=== PATIENT | male | born 2005 | race Caucasian/White ===

== ENCOUNTER 2025-03-24 16:53 | Inpatient (IN) | payer BC ==
[~2025-03-24] VITALS: Ht 165.1 cm; Wt 59.9 kg
[2025-03-24 17:48] LABS: PLATELET COUNT (AUTO) 263 K/uL (150-450); RED BLOOD CELL COUNT(AUTO) 5.64 MIL/uL (4.5-6.0); RED CELL DISTRIBUTION WIDTH 13.7 % (11.5-15.0); WHITE BLOOD COUNT (AUTO) 8.2 K/uL (4.3-11.0)
[2025-03-24 18:01] LABS: APPEARANCE,URINE CLEAR (CLEAR); BLOOD, URINE Small Ery/uL (NEGATIVE); LEUKOCYTE ESTERASE ,URINE Negative (NEGATIVE); UGLUCOSE Negative (NEGATIVE)
[2025-03-24] MEDS ORDERED: METOCLOPRAMIDE HCL 10 MG/2 ML VIAL ONE (18:02)
[2025-03-24] MEDS ORDERED: FAMOTIDINE/PF INJ 20 MG/2 ML VIAL IV ONE (18:02)
[2025-03-24] MEDS ORDERED: MAG HYDROX/AL HYDROX/SIMETH 30 ML UDC ONE (18:02)
[2025-03-24] MEDS ORDERED: LIDOCAINE VISCOUS 2% UD 15 ML UDC ONE (18:03)
[2025-03-24 18:04] LABS: CALCIUM, SERUM 9.7 mg/dL (8.5-10.1); CREATININE 0.8 mg/dL (0.6-1.3); SODIUM SERUM 131.0 mmol/L (136-145); UREA NITROGEN, BLOOD 17.0 mg/dL (7-18)
[2025-03-24 18:05] LABS: NITRITE, URINE NEGATIVE (NEGATIVE)
[2025-03-24 18:07] LABS: ADD URINE CULTURE NO; SQUAMOUS EPITHELIAL CELL,UR None Seen /HPF (None Seen)
[2025-03-24] MEDS: METOCLOPRAMIDE HCL 10 MG/2 ML VIAL IV ONE (18:08)
[2025-03-24] MEDS: IV NS 0.9% 1,000 ML BAG IV ONE (18:08)
[2025-03-24] MEDS: FAMOTIDINE/PF INJ 20 MG/2 ML VIAL IV ONE (18:08)
[2025-03-24 18:09] LABS: ASPARTATE AMINOTRANSFERASE 26.0 U/L (15-37); TOTAL PROTEIN, SERUM 8.8 g/dL (6.4-8.2)
[2025-03-24] MEDS: MAG HYDROX/AL HYDROX/SIMETH 30 ML UDC PO ONE (18:09)
[2025-03-24] MEDS: LIDOCAINE VISCOUS 2% UD 15 ML UDC MM ONE (18:09)
[2025-03-24] MEDS ORDERED: POTASSIUM CHLORIDE 20 MEQ TAB.PRT.SR PO ONE (19:19)
[2025-03-24] MEDS: POTASSIUM CHLORIDE 20 MEQ TAB.PRT.SR PO ONE (19:23)
[2025-03-24 21:00] VITALS: O2SAT 96
[2025-03-24 22:05] VITALS: BP 116/73; TEMP 97.7; O2SAT 96
[2025-03-24] MEDS ORDERED: ACETAMINOPHEN 325 MG TABLET PO PRN (23:00)
[2025-03-24] MEDS ORDERED: MAGNESIUM HYDROXIDE 30 ML UDC PO PRN (23:00)
[2025-03-24] MEDS ORDERED: Z GUARD REMEDY 4 OZ OINT TP PRN (23:00)
[2025-03-24] MEDS ORDERED: MAG HYDROX/AL HYDROX/SIMETH 30 ML UDC PO PRN (23:00)
[2025-03-24] MEDS ORDERED: ZOLPIDEM TARTRATE 5 MG TABLET PO PRN (23:00)
[2025-03-24] MEDS: IV NS 0.9% 1,000 ML IV PRN (23:11)
[2025-03-24] MEDS ORDERED: KETOROLAC TROMETHAMINE 15 MG/ML VIAL IV PRN (23:30)
[2025-03-25 06:42] LABS: PLATELET COUNT (AUTO) 201 K/uL (150-450); RED BLOOD CELL COUNT(AUTO) 4.93 MIL/uL (4.5-6.0); RED CELL DISTRIBUTION WIDTH 13.9 % (11.5-15.0); WHITE BLOOD COUNT (AUTO) 5.7 K/uL (4.3-11.0)
[2025-03-25 06:47] LABS: ASPARTATE AMINOTRANSFERASE 18.0 U/L (15-37); CALCIUM, SERUM 8.6 mg/dL (8.5-10.1); CREATININE 1.0 mg/dL (0.6-1.3); PHOSPHORUS 2.9 mg/dL (2.5-4.9); SODIUM SERUM 139.0 mmol/L (136-145); TOTAL PROTEIN, SERUM 6.4 g/dL (6.4-8.2); UREA NITROGEN, BLOOD 14.0 mg/dL (7-18)
[2025-03-25 07:30] VITALS: BP 119/62; TEMP 98.4; O2SAT 98
[2025-03-25] MEDS: PANTOPRAZOLE 40 MG VIAL IV SCH (08:06)
[2025-03-25 10:25] LABS: LYMPHOCYTES % (MANUAL) 25 % (16-48); NEUTROPHILS % (MANUAL) 57 (42-76)
[2025-03-25 10:26] LABS: MONOCYTES % (MANUAL) 18 % (0-11.0); PLATELET ESTIMATE ADEQUATE
[2025-03-25] MEDS: ONDANSETRON HCL/PF 4 MG/2 ML VIAL IVP PRN (12:12)
[2025-03-25 20:00] VITALS: BP 142/100; TEMP 98.1; O2SAT 98
[2025-03-26 06:54] LABS: PLATELET COUNT (AUTO) 204 K/uL (150-450); RED BLOOD CELL COUNT(AUTO) 4.97 MIL/uL (4.5-6.0); RED CELL DISTRIBUTION WIDTH 13.9 % (11.5-15.0); WHITE BLOOD COUNT (AUTO) 5.5 K/uL (4.3-11.0)
[2025-03-26 07:10] LABS: CALCIUM, SERUM 8.7 mg/dL (8.5-10.1); CREATININE 0.8 mg/dL (0.6-1.3); PHOSPHORUS 3.6 mg/dL (2.5-4.9); SODIUM SERUM 136.0 mmol/L (136-145); UREA NITROGEN, BLOOD 11.0 mg/dL (7-18)
[2025-03-26 08:00] VITALS: BP 115/76; TEMP 98.4; O2SAT 100
[2025-03-26 11:13] LABS: EOSINOPHILS % (MANUAL) 3 % (0-4); LYMPHOCYTES % (MANUAL) 31 % (16-48); MONOCYTES % (MANUAL) 17 % (0-11.0); NEUTROPHILS % (MANUAL) 49 (42-76); PLATELET ESTIMATE ADEQUATE
[2025-03-26] MEDS ORDERED: PANT20TA2 PO (12:04)
[2025-03-27] MEDS ORDERED: ONDA4TAB5 PO (12:35)
== END 2025-03-26 17:00 | disposition home or self-care (01) | DRG 439 ==
LOC: ER 16:57 → TELE 21:34 → MED 03-25 04:07
PROVIDERS: ADMIT Student in an Organized Health Care Education/Training Program; ATTEND Nurse Practitioner Acute Care
DX: K85.90 Acute pancreatitis without necrosis or infection, unspecified (principal); E87.1 Hypo-osmolality and hyponatremia; E87.6 Hypokalemia; Z87.11 Personal history of peptic ulcer disease; J45.909 Unspecified asthma, uncomplicated
CPT/HCPCS: 36415; 76705-TC; 80048-TC; 80076-TC; 81001; 83690-TC; 83735-TC; 84100-TC; 85025-TC; 85027-TC; 87081-TC; 87086-TC; A4223; G0378; J1308; J2405; J2470; J2765; J7030